=== PATIENT | female | born 1995 | race Two or more races ===

== ENCOUNTER 2022-03-09 03:16 | Emergency (ER) | payer SELFPAY ==
[~2022-03-09] VITALS: Ht 157.5 cm; Wt 118.0 kg
[2022-03-09 03:25] VITALS: BP 121/82
== END 2022-03-09 05:27 | disposition home or self-care (01) ==
LOC: ER 03:16
DX: R51.9 Headache, unspecified (principal); Y08.89XA Assault by other specified means, initial encounter; Y93.89 Activity, other specified; Y92.89 Other specified places as the place of occurrence of the external cause; Y99.8 Other external cause status
CPT/HCPCS: 70450; 71045

== ENCOUNTER 2025-04-02 10:42 | Emergency (ER) | payer MEDICAID ==
[~2025-04-02] VITALS: Ht 157.5 cm; Wt 105.2 kg
[2025-04-02 10:44] VITALS: BP 163/78; PULSE 74; RESP 17; TEMP 98.4; O2SAT 97
--- NOTE | 2025-04-02 10:56 | ED.PDOC ---
History of Present Illness HPI Comments 30-year-old female who comes in with chief complaint of vaginal bleeding and abdominal pain. The patient states that she is approximately 7 weeks . The patient states that the abdominal pain is in the lower abdominal area and she rates it as a 7/10. The patient is has a history of gestational diabetes as well as preeclampsia and miscarriage in the past. She states that she is concerned so she came to the emergency department for evaluation. The patient states that the symptoms have worsened at this time. She denies any fever, chills or dysuria. Chief Complaint: Vaginal Bleed Time Seen by MD: 10:44 Primary Care Provider: TONG Le Notes: Nurses Notes, Medications, Allergies (No allergies to medications) Allergies: Coded Allergies: NO KNOWN ALLERGIES (Unverified , 03/09/22) Home Meds Active Scripts Nitrofurantoin Monohydrate Mac (Macrobid) 100 Mg Cap, 100 MG PO BID for 5 Days, #10 CAP Prov:BOO LIZARRAGA MD 04/02/25 Information Source: Patient Mode of Arrival: Ambulatory Severity: Moderate Timing: Days (Symptoms started yesterday) Duration: Since onset Prehospital treatment: None Location: Lower abdominal pain with vaginal bleeding Past Medical History Past Medical History (Other): The patient has had gestational diabetes, miscarriage, history of preeclampsia Surgical History: Cholecystectomy, , Denies all surgeries SHOP HELPER History: Denies all SHOP HELPER Hx Family History Family History: Family hx of Cancer Social History Smoker: Non-Smoker Alcohol: Occasionally Drugs: Marijuana Lives In: Home Constitutional: denies: chills, diaphoresis, fatigue, fever, malaise, sweats, weakness, others EENTM: denies: blurred vision, double vision, ear bleeding, ear discharge, ear drainage, ear pain, ear ringing, eye pain, eye redness, hearing loss, mouth pain, mouth swelling, nasal discharge, nose bleeding, nose congestion, nose pain, photophobia, tearing, throat pain, throat swelling, voice changes, others Respiratory: denies: cough, hemoptysis, orthopnea, SOB at rest, shortness of breath, SOB with excertion, stridor, wheezing, others Cardiovascular: denies: chest pain, dizzy spells, diaphoresis, Dyspnea on ex ertion, edema, irregular heart beat, left arm pain, lightheadedness, palpitations, PND, syncope, others Gastrointestinal: reports: abdominal pain; denies: abdomen distended, blood streaked bowels, constipated, diarrhea, dysphagia, difficulty swallowing, hematemesis, melena, nausea, poor appetite, poor fluid intake, rectal bleeding, rectal pain, vomiting, others Genitourinary: reports: abnormal vagina bleeding, ; denies: burning, dyspareunia, dysuria, flank pain, frequency, hematuria, incontinence, pain, vagina discharge, urgency, others Neurological: denies: dizziness, fainting, headache, left sided numbness, left sided weakness, numbness, paresthesia, pre-existing deficit, right sided numbness, right sided weakness, seizure, speech problems, tingling, tremors, weakness, others Musculoskeletal: denies: back pain, gout, joint pain, joint swelling, muscle pain, muscle stiffness, neck pain, others Integumetry: denies: bruises, change in color, change in hair/nails, dryness, laceration, lesions, lumps, rash, wounds, others Allergic/Immunocompromised: denies: Difficulty Healing, Frequent Infections, Hives, Itching, others Hematologic/Lymphatic: denies: anemia, blood clots, easy bleeding, easy bruising, swollen glands, others Endocrine: denies: excessive hunger, excessive sweating, excessive thirst, excessive urination, flushing, intolerance to cold, intolerance to heat, unexplained weight gain, unexplained weight loss, others Psychiatric: denies: anxiety, bipolar disorder, depression, hopeless, panic di sorder, schizophrenia, sleepless, suicidal, others Physical Exam General Appearance: No Apparent Distress HEENT: Normal ENT Inspection, Pharynx Normal, TMs Normal Neck: Full Range of Motion, Non-Tender, Normal, Normal Inspection Respiratory: Chest Non-Tender, Lungs Clear, No Accessory Muscle Use, No Respiratory Distress, Normal Breath Sounds Cardiovascular: No Edema, No JVD, No Murmur, No Gallop, Normal Peripheral Pulses, Regular Rate/Rhythm Breast Exam: Deferred Gastrointestinal: No Organomegaly, No Pulsatile Mass, Normal Bowel Sounds, Soft, Suprapubic, Tenderness Genitalia: Deferred Pelvic: Deferred Rectal: Deferred Extremities: No calf tenderness, Normal capillary refill, Normal inspection, Normal range of motion, Non-tender, No pedal edema Musculoskeletal : Apperance: Normal Neurologic: Alert, casing in line setter II-XII nml as Tested, No Motor Deficits, Normal Affect, Normal Mood, No Sensory Deficits Cerebellar Function: Normal Reflexes: Normal Skin: Dry, Normal Color, Warm Lymphatic: No Adenopathy Was a procedure done? Was a procedure done?: No Differential Dx Considerations may include: Threatened , UTI, abdominal pain and , ectopic X-Ray, Labs, Meds, VS Vital Signs Date Time Temp Pulse Resp B/P (MAP) Pulse Ox O2 Delivery O2 Flow Rate FiO2 04/02/25 10:44 98.4 74 17 163/78 97 98.4 Lab Test 04/02/25 11:02 04/02/25 10:56 Range/Units Beta HCG, Quantitative 1866.7 H 1.5-4.2 mIU/mL Urine Color Light-orange Yellow Urine Clarity Turbid H Clear Urine pH 7.0 5.0-9.0 Urine Specific [place] 1.028 1.001-1.035 Urine Protein Trace H Negative Urine Ketones Negative Negative Urine Blood 3+ H Negative /uL Urine Nitrite Negative Negative Urine Bilirubin Negative Negative Urine Urobilinogen Normal Negative mg/dL Urine Leukocyte Esterase Trace Negative /uL Urine RBC 2318 0 - 4 /hpf Urine Microscopic WBC 8 H 0-5 /HPF Urine Squamous Epithelial Cells Mod <5 /hpf Urine Bacteria None seen None Seen /hpf Urine Mucus Few None Seen Urine Glucose Normal Normal mg/dL PROCEDURE(s): OBTVG - OB TRANS VAGINAL US IMPRESSION: No definite intrauterine is visualized. Possible cystic structure in the endometrial cavity measuring 0.9 cm which may represent a irregular gestational sac versus fluid. Correlate with beta HCG and short-term follow-up pelvic ultrasound as clinically indicated. PROCEDURE(s): OB4US - OB ULTRASOUND COMP LESS 14WKS IMPRESSION: No definite intrauterine is visualized. Possible cystic structure in the endometrial cavity measuring 0.9 cm which may represent a irregular gestational sac versus fluid. Correlate with beta HCG and short-term follow-up pelvic ultrasound as clinically indicated. At this time, the patient states that she is asymptomatic The urine test is positive for UTI The quantitative hCG is 1866.7 We advised the patient that she needs to follow-up for another ultrasound as well as a quantitative hCG The patient is being discharged. Images Reviewed?: Images reviewed and evaluated by me Time of 1ST Reevaluation: 10:55 Reevaluation 1ST: Improved Patient Education/Counseling: Diagnosis, Treatment, Prognosis, Need For Follow Up Family Education/Counseling: No Family Present SEPSIS Sepsis Screen Date sepsis recognized/suspect: Apr 02, 2025 Time Sepsis recognized/suspect: 1046 Recent Procedure: No On Antibiotic Therapy: No Respiratory Rate >20: No Heart Rate >90: Yes Temp<36 C (96.8 F) or >38.3 C: No SBP <90 or MAP <65 mmHG: No New Acute Mental Status Change: No Is the patient on CPAP, BIPAP,: No Physician Orders Ob Ultrasound Comp Less 14wks (04/02/25 10:56) Ob Trans Vaginal Us (04/02/25 ) Vital Signs Date Time Temp Pulse Resp B/P (MAP) Pulse Ox O2 Delivery O2 Flow Rate FiO2 04/02/25 10:44 98.4 74 17 163/78 97 98.4 Departure 1 Departure Time of Disposition: 14:00 Impression: Primary Impression: Threatened Additional Impression: UTI in Qualified Codes: O23.40 - Unspecified infection of urinary tract in , unspecified trimester Disposition: 01 HOME / SELF CARE / HOMELESS Condition: Fair e-Prescriptions Nitrofurantoin Monohydrate Mac (Macrobid) 100 Mg Cap 100 MG PO BID for 5 Days, #10 CAP Prov: BOO LIZARRAGA MD 04/02/25 Discharged With: Self Critical Care Note Critical Care Time?: No Stability Stability form required: No Heart Score Heart Score: Heart Score Response (Comments) Value History N/A 0 EKG N/A 0 Age N/A 0 Risk Factors N/A 0 Troponin N/A 0 Total 0 I personally scribed for BOO LIZARRAGA MD ([email or web address]) on 04/02/25 at 13:10. Electronically submitted by Mike Manzano ([email or web address]). BOO LIZARRAGA MD Apr 02, 2025 10:55
--- NOTE | 2025-04-02 13:00 | DVH ---
OB ULTRASOUND <14 WEEKS: HISTORY: bleeding TECHNIQUE: Multiple real-time grayscale sonographic images of the pelvis with duplex Doppler color f low, spectral and M-mode analysis. TRANSDUCERS: Transabdominal and transvaginal FINDINGS: The uterus measures 8.7 x 5.3 x 5.9 cm. The cervix not well visualized. Right ovary measures 2.2 x 2.9 x 1.8 cm with normal Doppler color flow Left ovary measures 3.9 x 2.8 x 1.9 cm with normal Doppler color flow No definite intrauterine is visualized. Possible cystic structure in the endometrial cavity measuring 0.9 cm which may represent a irregular gestational sac versus fluid. IMPRESSION: No definite intrauterine is visualized. Possible cystic structure in the endometrial cavity measuring 0.9 cm which may represent a irregular gestational sac versus fluid. Correlate with beta H CG and short-term follow-up pelvic ultrasound as clinically indicated.
[2025-04-02 13:34] LABS: Urine Protein, UAD TRACE (Negative)
[2025-04-02] MEDS ORDERED: NITR-87 PO (14:01)
== END 2025-04-02 14:16 | disposition home or self-care (01) ==
LOC: ER 10:42
DX: O20.0 Threatened abortion (principal); O23.41 Unspecified infection of urinary tract in pregnancy, first trimester; N39.0 Urinary tract infection, site not specified; Z3A.01 Less than 8 weeks gestation of pregnancy; Z90.49 Acquired absence of other specified parts of digestive tract
CPT/HCPCS: 36415; 76801; 76817; 81001; 84702